=== PATIENT | male | born 1970 | race American Indian/Alaskan Native ===

== ENCOUNTER 2020-06-05 15:56 | Emergency (ER) | payer OTHER ==
[2020-06-05 16:30] VITALS: BP 137/104; PULSE 83
[2020-06-05] MEDS ORDERED: HYDROmorphone 1 MG/ML Syringe IM ONE (17:43)
[2020-06-05] MEDS ORDERED: Ketorolac 60 MG/2 ML SDV IM ONE (17:43)
--- NOTE | 2020-06-05 18:19 | EDM.PDOC ---
ED HPI GENERAL MEDICAL PROBLEM - General Chief Complaint: Back Pain or Injury Stated Complaint: BACK PAIN Time Seen by Provider: 06/05/20 17:28 Source of Information: Reports: Patient History Limitations: Reports: No Limitations - History of Present Illness INITIAL COMMENTS - FREE TEXT/NARRATIVE: Patient is a 50-year-old male presenting to the emergency department with complaints of a 3-week history of low back pain. He states about 3 weeks ago he had a guided CT scan done of his cervical spine for chronic neck pain. This procedure required them to inject contrast into his spinal column per his report. Since that time, he has been experiencing pain in his low back. He denies any numbness or tingling to his extremities or bowel or bladder dysfunction. He has had no recent falls or injuries. He states prior to this procedure he did not have any problems with low back pain. He is prescribed back gabapentin for his neck pain, however he states this does not touch his low back pain. He has not taken it thus far today. He has tried [id number] pain medications with little relief. He has not seen his primary care provider with regards to this thus far. His primary care provider is Dr. [facility]anez [facility]. Bilateral Lower Back Pain Score (Numeric/FACES): 8 - Related Data Allergies Allergy/AdvReac Type Severity Reaction Status Date / Time No Known Allergies Allergy Verified 06/05/20 16:30 Home Meds: Home Meds Cholecalciferol (Vitamin D3) [Vitamin D] 1,000 unit PO DAILY 08/30/15 [History] Acetaminophen/HYDROcodone [[place] 325-5 MG] 1 tab PO Q4H PRN #10 tablet 06/05/20 [Rx] Aspirin 81 mg PO DAILY 06/05/20 [History] Gabapentin [Neurontin] 300 mg PO TID 06/05/20 [History] Multivitamin 1 tab PO DAILY 06/05/20 [History] Sertraline [Zoloft] 100 mg PO DAILY 06/05/20 [History] atorvaSTATin [Lipitor] 80 mg PO DAILY 06/05/20 [History] Past Medical History Cardiovascular History: Reports: High Cholesterol Gastrointestinal History: Reports: GERD, Other (See Below) Other Gastrointestinal History: Crohn's disease Psychiatric History: Reports: Depression - Infectious Disease History Infectious Disease History: Reports: None - Past Surgical History GI Surgical History: Reports: Hernia Repair/Other Neurological Surgical History: Reports: C-Spine Musculoskeletal Surgical History: Reports: Other (See Below) Other Musculoskeletal Surgeries/Procedures:: Neck surgery Oncologic Surgical History: Reports: Other (See Below) Other Oncologic Surgeries/Procedures: Lymphotomy (at age 13) Social & Family History - Family History Family Medical History: Noncontributory - Tobacco Use Smoking Status *Q: Current Every Day Smoker Years of Tobacco use: 35 Packs/Tins Daily: 1 - Caffeine Use Caffeine Use: Reports: Coffee - Recreational Drug Use Recreational Drug Use: Yes Drug Use in Last 12 Months: No Recreational Drug Type: Reports: Marijuana/Hashish ED ROS GENERAL - Review of Systems Review Of Systems: Comprehensive ROS is negative, except as noted in HPI. ED EXAM,LOWER BACK PAIN/INJURY - Physical Exam Exam: See Below Exam Limited By: No Limitations General Appearance: Alert, WD/WN, No Apparent Distress Respiratory/Chest: No Respiratory Distress, Lungs Clear, Normal Breath Sounds, No Accessory Muscle Use, Chest Non-Tender Cardiovascular: Normal Peripheral Pulses, Regular Rate, Rhythm, No Edema, No Gallop, No JVD, No Murmur, No Rub Back Exam: Normal Inspection, Paraspinal Tenderness (Lateral to L5-S1), Vertebral Tenderness (L5-S1) Extremities: Normal Inspection, Normal Range of Motion, Non-Tender, No Pedal Edema, Normal Capillary Refill Neurological: Alert, Normal Mood/Affect, Normal Dorsiflexion, CN II-XII Intact, Normal Plantar Flexion, Normal Gait, Normal Reflexes, No Motor/Sensory Deficits, Oriented x 3 Psychiatric: Normal Affect, Normal Mood Skin Exam: Warm, Dry, Intact, Normal Color, No Rash Course - Vital Signs Last Recorded V/S: Last Vital Signs Temp 98.3 F 06/05/20 16:27 Pulse 83 06/05/20 16:27 Resp 19 06/05/20 16:27 BP 137/104 H 06/05/20 16:27 Pulse Ox 95 06/05/20 16:27 - Orders/Labs/Meds Orders: Active Orders 24 hr Category Date Time Status Lumbar Spine 2 or 3V [CR] Stat Exams 06/05/20 17:28 Taken Meds: Medications Discontinued Medications Generic Name Dose Route Start Last Admin Trade Name Freq PRN Reason Stop Dose Admin Hydromorphone HCl 1 mg 06/05/20 17:43 06/05/20 18:17 Dilaudid IM 06/05/20 17:44 1 mg ONETIME ONE Administration Ketorolac Tromethamine 60 mg 06/05/20 17:43 06/05/20 18:16 Toradol IM 06/05/20 17:44 60 mg ONETIME ONE Administration - Re-Assessments/Exams Free Text/Narrative Re-Assessment/Exam: Patient is a 50-year-old male presenting to the emergency department with a 3- week history of low back pain. On exam, he does have significant tenderness to L5-S1 and the bilateral paraspinous muscles at this level. He has had no falls or injuries. He suspects that they damaged a nerve during the procedure that he had done 3 weeks ago. I have ordered 1 mg of IM Dilaudid, 60 mg of IM Toradol, and an x-ray of his lumbar spine. 06/05/20 19:18 X-ray of the lumbar spine showed some minor degenerative changes as well as probable cholelithiasis. Patient is feeling much better after medications given. I will write a short prescription of [place] for pain. Recommend ibuprofen routinely and the [place] as needed for pain not relieved by that. Follow-up with his primary care provider at her next available visit. Discharge instructions as documented. Departure - Departure Time of Disposition: 19:19 Disposition: Home, Self-Care 01 Condition: Good Clinical Impression: Low back pain Qualifiers: Chronicity: acute Back pain laterality: midline Sciatica presence: without sciatica Qualified Code(s): M54.5 - Low back pain - Discharge Information *PRESCRIPTION DRUG MONITORING PROGRAM REVIEWED*: No *COPY OF PRESCRIPTION DRUG MONITORING REPORT IN PATIENT YENNIFER: No Prescriptions: Acetaminophen/HYDROcodone [[place] 325-5 MG] 1 tab PO Q4H PRN #10 tablet PRN Reason: Pain Instructions: Acute Back Pain, Adult Referrals: Yessenia Fontanez MD [Primary Care Provider] - Forms: ED Department Discharge Additional Instructions: You were seen in the emergency department today for low back pain over the course of the last 3 weeks after having a guided CT completed. X-rays were completed your spine and showed no acute abnormalities. While in the emergency department, you received an injection of pain meds which you state did improve your pain. Recommend that you take ibuprofen and Tylenol routinely to try to manage the pain. For pain not relieved by this, a short prescription of [place] has been sent. Take this medication only as prescribed. Do not drive or work for 12 hours after taking this as it can be sedating. Recommend follow-up with your primary care provider at her next available visit for further treatment. Return to the ER as needed. Sepsis Event Note (ED) - Evaluation Sepsis Screening Result: No Definite Risk - Focused Exam Vital Signs: Vital Signs Temp Pulse Resp BP Pulse Ox 06/05/20 16:27 98.3 F 83 19 137/104 H 95 - My Orders Last 24 Hours: My Active Orders 06/05/20 17:28 Lumbar Spine 2 or 3V [CR] Stat - Assessment/Plan Last 24 Hours: My Active Orders 06/05/20 17:28 Lumbar Spine 2 or 3V [CR] Stat
--- NOTE | 2020-06-30 15:24 | CR ---
PROCEDURE INFORMATION: Exam: XR Lumbosacral Spine, 2 or 3 Views Exam date and time: 06/05/2020 6:00 PM Age: 50 years old Clinical indication: Low back pain TECHNIQUE: Imaging protocol: XR of the lumbosacral spine, 2 or 3 views. COMPARISON: No relevant prior studies available. FINDINGS: Bones/joints: Near anatomic alignment. There is mild endplate sclerosis and osteophyte formation identified throughout the lumbar segment. Mild diffuse facet disease is present. Facet disease is most obvious at L5-S1. There is no evidence of acute fracture. The pedicles are intact. Soft tissues: No acute soft tissue abnormalities are identified. Other findings: Gallstones suspect. IMPRESSION: 1. Minor degenerative change. 2. Probable cholelithiasis Thank you for allowing us to participate in the care of your patient. Dictated and Authenticated by: Eliseo Baum MD 06/28/2020 7:58 PM Central Time ([place] & [place]) [place]
== END 2020-06-05 19:34 | disposition home or self-care (01) ==
LOC: JD.ED 15:56
DX: M54.5 Low back pain (principal); E78.00 Pure hypercholesterolemia, unspecified; F32.9 Major depressive disorder, single episode, unspecified; F17.210 Nicotine dependence, cigarettes, uncomplicated; Z79.82 Long term (current) use of aspirin; Z79.899 Other long term (current) drug therapy
CPT/HCPCS: 72100; 96372; 99283; J1170; J1885

== ENCOUNTER 2021-02-22 09:17 | Emergency (ER) | payer MEDICAID, OTHER ==
[2021-02-22 09:27] VITALS: BP 172/106; PULSE 102
[2021-02-22] MEDS ORDERED: Ibuprofen 600 MG Tab PO ONE (10:24)
[2021-02-22] MEDS ORDERED: predniSONE 20 MG Tab PO ONE (10:24)
--- NOTE | 2021-02-22 10:40 | EDM.PDOC ---
ED HPI GENERAL MEDICAL PROBLEM - General Chief Complaint: Lower Extremity Injury/Pain Stated Complaint: HIP PAIN Time Seen by Provider: 02/22/21 09:30 Source of Information: Reports: Patient History Limitations: Reports: No Limitations - History of Present Illness INITIAL COMMENTS - FREE TEXT/NARRATIVE: 50 yo M with known severe L low back pain/sciatica x several months presents with exacerbation of his usual pain. He was planning to be seen at the [facility] today but was referred here due to the amount of pain he is having. States this problem started after a back injection in 04/15, initially had bilateral sciatica then R improved, has persistent L low back pain which is sharp, constant, worse with sitting and walking, better with lying flat. Has sharp pain that radiates to L leg. Has seen multiple healthcare providers without much relief. Is currently taking gabapentin, neurontin, occasional ibpurofen, lidocaine patch. Has tried physical therapy stretches. States that he did have significant relief with a course of steroids prescribed by the ED, his pain nearly resolved with this, but has now recurred. Left Leg Pain Score (Numeric/FACES): 9 - Related Data Allergies Allergy/AdvReac Type Severity Reaction Status Date / Time No Known Allergies Allergy Verified 02/22/21 09:28 Home Meds: Home Meds Cholecalciferol (Vitamin D3) [Vitamin D] 1,000 unit PO DAILY 08/30/15 [History] Aspirin 81 mg PO DAILY 06/05/20 [History] Gabapentin [Neurontin] 300 mg PO TID 06/05/20 [History] Multivitamin 1 tab PO DAILY 06/05/20 [History] Sertraline [Zoloft] 100 mg PO DAILY 06/05/20 [History] atorvaSTATin [Lipitor] 80 mg PO DAILY 06/05/20 [History] Diclofenac Sodium [Voltaren] 75 mg PO BIDMEALS #16 tab.delilah 12/19/20 [Rx] Omeprazole 20 mg PO QAM #20 tablet. 12/19/20 [Rx] predniSONE [Prednisone] 10 mg PO DAILY #50 tablet 02/22/21 [Rx] Past Medical History Cardiovascular History: Reports: High Cholesterol Gastrointestinal History: Reports: GERD, Other (See Below) Other Gastrointestinal History: Crohn's disease Musculoskeletal History: Reports: Other (See Below) Other Musculoskeletal History: sciatica Psychiatric History: Reports: Depression - Infectious Disease History Infectious Disease History: Reports: None - Past Surgical History GI Surgical History: Reports: Hernia Repair/Other Neurological Surgical History: Reports: C-Spine Musculoskeletal Surgical History: Reports: Other (See Below) Other Musculoskeletal Surgeries/Procedures:: Neck surgery Oncologic Surgical History: Reports: Other (See Below) Other Oncologic Surgeries/Procedures: Lymphotomy (at age 13) Social & Family History - Family History Family Medical History: No Pertinent Family History - Tobacco Use Tobacco Use Status *Q: Current Every Day Tobacco User Years of Tobacco use: 24 Packs/Tins Daily: 1 - Caffeine Use Caffeine Use: Reports: Coffee - Recreational Drug Use Recreational Drug Use: No Review of Systems - Review of Systems Review Of Systems: See Below Constitutional: Reports: No Symptoms Ears: Reports: No Symptoms Nose: Reports: No Symptoms Mouth/Throat: Reports: No Symptoms Respiratory: Reports: No Symptoms Cardiovascular: Reports: No Symptoms GI/Abdominal: Reports: No Symptoms Musculoskeletal: Reports: Back Pain Skin: Reports: No Symptoms Neurological: Denies: Weakness Psychiatric: Reports: No Symptoms ED EXAM, GENERAL - Physical Exam Exam: See Below Exam Limited By: No Limitations General Appearance: Alert, Mild Distress Eye Exam: Bilateral Eye: Normal Inspection Ears: Normal External Exam Nose: Normal Inspection Throat/Mouth: Normal Inspection, Normal Voice Head: Atraumatic, Normocephalic Neck: Normal Inspection, Supple Respiratory/Chest: No Respiratory Distress Cardiovascular: Normal Peripheral Pulses GI/Abdominal: No Distention Back Exam: Normal Inspection, Other (+low lumbar and L paraspinal TTP, no skin abnormality) Extremities: Normal Inspection, No Pedal Edema Neurological: Alert, Oriented, Normal Cognition, No Motor/Sensory Deficits Psychiatric: Normal Affect, Normal Mood Skin Exam: Warm, Dry, Normal Color Course - Vital Signs Last Recorded V/S: Last Vital Signs Temp 36.1 C 02/22/21 09:24 Pulse 102 H 02/22/21 09:24 Resp 18 02/22/21 09:24 BP 172/106 H 02/22/21 09:24 Pulse Ox 99 02/22/21 09:24 - Orders/Labs/Meds Meds: Medications Discontinued Medications Generic Name Dose Route Start Last Admin Trade Name Freq PRN Reason Stop Dose Admin Ibuprofen 600 mg 02/22/21 10:24 02/22/21 10:56 Ibuprofen 600 Mg Tab PO 06/29/21 10:25 600 mg ONETIME ONE Administration Prednisone 60 mg 02/22/21 10:24 02/22/21 10:56 Prednisone 20 Mg Tab PO 02/22/21 10:25 60 mg ONETIME ONE Administration - Re-Assessments/Exams Free Text/Narrative Re-Assessment/Exam: 02/22/21 11:27 Patient is adamant that steroid course significantly helped his pain a few months ago. Discussed risks/benefits of steroids and he would very much like to try another course. He has tried many other therapies for his pain without relief. No indication for imaging/labs or other ED workup at this time. Discussed ED return precautions and advised him to f/u with PCP CHERYL for further care. Departure - Departure Time of Disposition: 10:34 Disposition: Home, Self-Care 01 Clinical Impression: Sciatica of left side associated with disorder of lumbar spine - Discharge Information Prescriptions: predniSONE [Prednisone] 10 mg PO DAILY #50 tablet Referrals: Yessenia Fontanez MD [Primary Care Provider] - Forms: ED Department Discharge Additional Instructions: 1. Take prednisone taper as prescribed. Continue your usual medications for pain. Follow up with your regular doctor as soon as possible 2. Return to the ED as needed for any new concerning symptoms Sepsis Event Note (ED) - Evaluation Sepsis Screening Result: No Definite Risk - Focused Exam Vital Signs: Vital Signs Temp Pulse Resp BP Pulse Ox 02/22/21 09:24 36.1 C 102 H 18 172/106 H 99
== END 2021-02-22 11:00 | disposition home or self-care (01) ==
LOC: JD.ED 09:17
DX: M54.42 Lumbago with sciatica, left side (principal); E78.00 Pure hypercholesterolemia, unspecified; K21.9 Gastro-esophageal reflux disease without esophagitis; Z72.0 Tobacco use; Z79.82 Long term (current) use of aspirin; Z79.899 Other long term (current) drug therapy
CPT/HCPCS: 99283; A9270; J7512

== ENCOUNTER 2022-03-11 14:19 | Emergency (ER) | payer MEDICAID, OTHER ==
[2022-03-11 16:05] VITALS: BP 157/74; PULSE 74
[2022-03-11] MEDS ORDERED: Lidocaine 1% 10 ML MDV INJECT ONE (16:23)
[2022-03-11 17:22] LABS: ESTIMATED GFR 102 mL/min (>60)
== END 2022-03-11 18:27 | disposition home or self-care (01) ==
LOC: JD.ED 14:19
DX: L02.414 Cutaneous abscess of left upper limb (principal); E78.00 Pure hypercholesterolemia, unspecified; K21.9 Gastro-esophageal reflux disease without esophagitis; Z79.82 Long term (current) use of aspirin; Z79.899 Other long term (current) drug therapy
CPT/HCPCS: 10060; 36415; 80053; 83735; 85025; 86140; 87040; 87070; 87075; 87205; 99283; 99283-25

== ENCOUNTER 2022-05-14 04:45 | Emergency (ER) | payer OTHER ==
[2022-05-14 05:07] VITALS: BP 120/78; PULSE 63
[2022-05-14 05:50] LABS: CORONAVIRUS COVID-19 NAA NEGATIVE (NEGATIVE)
== END 2022-05-14 06:31 | disposition home or self-care (01) ==
LOC: JD.ED 04:45
DX: B34.9 Viral infection, unspecified (principal); Z20.822 Contact with and (suspected) exposure to COVID-19; Z79.899 Other long term (current) drug therapy; Z79.82 Long term (current) use of aspirin; Z86.16 Personal history of COVID-19
CPT/HCPCS: 0240U; 99283; 99282

== ENCOUNTER 2024-12-09 10:05 | Emergency (ER) | payer OTHER ==
[2024-12-09 10:27] VITALS: BP 150/90; PULSE 81
[2024-12-09 11:28] LABS: BASOPHILS PERCENT AUTO 0.1 % (0.0-1.0); EOSINOPHILS ABSOLUTE AUTO 0.2 K/mm3 (0.0-0.4); EOSINOPHILS PERCENT AUTO 2.4 % (0.0-6.0); HEMATOCRIT 38.4 % (42.0-52.0); HEMOGLOBIN 12.7 gm/dl (14.0-18.0); IMMATURE GRAN ABSOLUTE AUTO 0.03 K/mm3 (0.00-0.05); IMMATURE GRAN PERCENT AUTO 0.3 % (0.0-0.4); LYMPHOCYTES ABSOLUTE AUTO 1.9 K/mm3 (1.0-4.8); LYMPHOCYTES PERCENT AUTO 20.9 % (24.0-44.0); MEAN CORPUSCULAR HEMOGLOBIN 31.4 pg (28.0-32.0); MEAN CORPUSCULAR HGB CONC 33.1 g/dl (32.0-36.0); MEAN CORPUSCULAR VOLUME 94.8 fl (83.0-99.0); MEAN PLATELET VOLUME 8.1 fl (9.4-12.4); MONOCYTES ABSOLUTE AUTO 0.7 K/mm3 (0.0-0.8); MONOCYTES PERCENT AUTO 7.8 % (0.0-8.0); NEUTROPHILS ABSOLUTE AUTO 6.1 K/mm3 (1.8-7.7); NEUTROPHILS PERCENT AUTO 68.5 % (41.0-71.0); PLATELET COUNT,PLT 331 K/mm3 (150-400); RED BLOOD CELL COUNT 4.05 M/mm3 (4.52-5.90); WHITE BLOOD CELL COUNT,WBC 8.84 K/mm3 (3.9-11.3)
[2024-12-09] MEDS: Iopamidol 612 MG/ML 100 ML Bottle IVPUSH ONE (11:47)
[2024-12-09] MEDS: Sodium Chloride 0.9% 10 ML Syringe FLUSH PRN (11:47)
[2024-12-09 11:49] LABS: A/G RATIO 0.8 (1-2); ALBUMIN 3.2 g/dl (3.4-5.0); ANION GAP 12.6 (5-15); BILIRUBIN TOTAL 0.4 mg/dL (0.2-1.0); BUN/CREATININE RATIO 6.3 (14-18); CALCIUM 9.3 mg/dL (8.5-10.1); CREATININE 0.8 mg/dL (0.7-1.3); EST CRCL DRUG DOSING (CG) 96.4 mL/min; POTASSIUM,K 3.6 mEq/L (3.5-5.1); PROTEIN TOTAL,TP 7.1 g/dl (6.4-8.2)
[2024-12-09] MEDS: Sodium Chloride 0.9% 1,000 ML IV ONE (12:09)
[2024-12-09] MEDS: Ketorolac 15 MG/ML SDV IVPUSH ONE (12:10)
[2024-12-09] MEDS: Sodium Chloride 0.9% 10 ML Syringe FLUSH ONE (12:10)
[2024-12-09 12:11] LABS: APPEARANCE,URINE CLEAR (Clear); BILIRUBIN,URINE NEGATIVE (Negative); COLOR,URINE YELLOW (Yellow); GLUCOSE,URINE NEGATIVE (Negative); KETONES,URINE NEGATIVE (Negative); LEUKOCYTE ESTERASE,URINE NEGATIVE (Negative); NITRITE,URINE NEGATIVE (Negative); OCCULT BLOOD,URINE NEGATIVE (Negative); PROTEIN,URINE NEGATIVE (Negative); UROBILINOGEN,URINE 0.2 (0.2-1.0)
== END 2024-12-09 12:36 | disposition left against medical advice (07) ==
LOC: JD.ED 10:05
DX: S22.42XA Multiple fractures of ribs, left side, initial encounter for closed fracture (principal); M43.9 Deforming dorsopathy, unspecified; R91.1 Solitary pulmonary nodule; E78.00 Pure hypercholesterolemia, unspecified; K21.9 Gastro-esophageal reflux disease without esophagitis; Z79.82 Long term (current) use of aspirin; Z79.899 Other long term (current) drug therapy; Z79.811 Long term (current) use of aromatase inhibitors; Z86.16 Personal history of COVID-19; V86.55XA Driver of 3- or 4- wheeled all-terrain vehicle (ATV) injured in nontraffic accident, initial encounter; Y93.89 Activity, other specified
CPT/HCPCS: 36415; 71260; 74177; 80053; 81003; 83690; 85025; 93005; 96374; 99284; J1885; J7030; Q9967; 93010